=== PATIENT | female | born 1965 | race Caucasian/White ===

== ENCOUNTER → 2018-11-05 06:31 | Outpatient (CLI) | payer BC, SELFPAY ==
--- NOTE | 2018-11-05 06:35 | CT_ITS ---
STUDY: CT ABDOMEN AND PELVIS WITH AND WITHOUT CONTRAST REASON FOR EXAM: Female, 53 years old. RADIATION DOSAGE (If Supplied By Facility): CTDIvol = ( 12.09 ) mGy, DLP = ( 1000.19 ) mGycm TECHNIQUE: Transaxial images were obtained from the dome of the diaphragm to the symphysis pubis without oral contrast. 100CC IV Isovue 300 was administered. Sagittal and coronal images were reconstructed. Individualized dose optimization techniques were used for this CT. COMPARISON: None. FINDINGS: The visualized lung bases are unremarkable. The visualized portions of the heart are within normal limits. Normal liver. Normal gallbladder and extrahepatic biliary system. Normal spleen. Normal pancreas. No focal lesion or abnormal enhancement. Normal bilateral adrenal glands. The right kidney revealed evidence of 5 mm stone involving the within the UP junction on the left side causing slight fullness of the collecting system. No abnormality detected in the left kidney.. Normal visualized stomach. Normal small intestine. Normal colon. The appendix is not visualized. Normal abdominal aorta. Normal inferior vena cava. Normal retroperitoneum. Normal urinary bladder. Normal abdominal wall. Normal osseous structures. CT/CT Abd/Pelvis W/WO Contrast IMPRESSION: 5mm calculus at the UP junction on the right side causing mild fullness of the right collecting system Electronically Signed: Bubba Mancera, at 10:45 EDT Tel , Service support ,
== END ==
PROVIDERS: Family Provider Family Medicine; PCP Family Medicine; Referring Provider Urology; Visit Provider Urology
DX: R31.0 Gross hematuria (principal)
CPT/HCPCS: 74178; Q9967

== ENCOUNTER 2018-11-06 13:16 | Day surgery (SDC) | payer BC, SELFPAY ==
[2018-11-06 13:38] VITALS: BP 117/80; PULSE 80; RESP 14; TEMP 37.1; O2SAT 99; BMI 24.3
--- NOTE | 2018-11-06 15:52 | PCM.OPRPT ---
Problem List (1) Right renal stone Status: Acute Report of Operation Date of Procedure: 11/06/18 Pre-Operative Diagnosis: right renal stone Post-Operative Diagnosis: same Surgery/Procedure Performed:: right renal extracorporeal shockwave lithotripsy, cystoscopy and right ureteral stent insertion Description of Surgical Findings:: The patient is a 53-year-old female sent [facility] for evaluation of gross hematuria. She was identified as having a 5 mm right UPJ calculus. the risks benefits and alternatives were discussed with her and she agreed to proceed with surgical intervention. Informed consent was obtained. She was taken to the operating room and placed in supine position on operating room table. Anesthesia monitored the head, neck, airway, IV access and vital signs throughout the case. Once anesthesia was appropriately administered the patient was aligned with the lithotripter. The stone was identified and 1500 shocks were applied. At this time a cystourethroscopy was performed revealing bloody discharge from the right ureteral orifice secondary to stone treatment. The remainder of the bladder mucosa and examination were within normal limits. Specifically there were no masses, ulcerations or foreign bodies identified. A 6 Spanish 24 cm stent was inserted with the string left attached. Good curling was achieved in the renal pelvis as well as the urinary bladder. A fragments of the stone was then identified and 500 more shocks were applied. The patient tolerated the procedure well. The stone was no longer visible. The patient was awakened and taken to the recovery room in good condition. There were no complications during this procedure. Type of Anesthesia:: General Special Medications: ancef Specimen's removed: none Description of Procedure: See above. Grafts/Implants Used: JJ stent - Complications none - Admit VTE Documentation VTE Present on Admission: Yes VTE Mechan Device Prophylaxis: SCD's VTE Pharm Prophylaxis ordered?: No Reason prophylaxis not ordered:: Treatment Not Indicated
--- NOTE | 2018-11-06 15:53 | DCINST_ITS ---
Discharge Diet: No Restrictions Discharge Activity: May not drive while taking narcotic pain medications., May Shower May resume sexual activity in: 1 week Call your doctor if you observe: Fever of 101 or Higher, Inability to urinate, Inability to have a bowel movement, Shortness of breath, Chest pain, Calf discomfort, Uncontrolled pain Allergies/Adverse Reactions: Allergies No Known Allergies Allergy (Verified 11/05/18 16:22) Medications to take at Discharge Albuterol Inhaler [Ventolin Hfa] 1 - 2 puff INHALATION Q4H PRN PRN 11/05/18 Levothyroxine Sodium [Levoxyl] 50 mcg PO DAILY 11/05/18 Cephalexin [Keflex] 500 mg PO Q12 3 Days #6 cap 11/06/18 Fluconazole [Diflucan] 150 mg PO DAILY 2 Days #2 tab 11/06/18 Oxycodone HCl/Acetaminophen [Percocet 5/325] 1 - 2 tab PO Q6H PRN PRN 7 Days #30 tab 11/06/18 Phenazopyridine HCl [Pyridium] 200 mg PO TID PRN PRN 7 Days #30 tab 11/06/18 The following prescriptions were given: Fluconazole [Diflucan] 150 mg PO DAILY 2 Days #2 tab Prescription Printed Cephalexin [Keflex] 500 mg PO Q12 3 Days #6 cap Prescription Printed Oxycodone HCl/Acetaminophen [Percocet 5/325] 1 - 2 tab PO Q6H PRN PRN 7 Days #30 tab PRN Reason: Pain Prescription Printed Phenazopyridine HCl [Pyridium] 200 mg PO TID PRN PRN 7 Days #30 tab PRN Reason: Bladder Spasms Prescription Printed Primary Care Physician: Jesus Torres MD [Primary Care Provider] - Test Results: Test results from this visit will be discussed in further detail at your follow- up appointment, if applicable. Please Follow Up With: yCndy Ying MD When: call office for appt in 2 weeks Proposed Discharge Date: 11/06/18
[2018-11-06] MEDS: Cefazolin 2 GM in 0.9% Normal Saline 100 ML IV (16:28)
[2018-11-06 17:40] VITALS: BP 111/72; BP 117/80; PULSE 68; RESP 15; TEMP 36.3; O2SAT 100
[2018-11-06 17:45] VITALS: BP 114/72; BP 117/80; PULSE 68; RESP 16; O2SAT 100
[2018-11-06 17:50] VITALS: BP 116/69; BP 117/80; PULSE 68; RESP 16; O2SAT 100
[2018-11-06 17:55] VITALS: BP 113/68; BP 117/80; PULSE 76; RESP 16; TEMP 36.4; O2SAT 100
[2018-11-06 19:03] VITALS: BP 117/80; BP 149/75; PULSE 81; RESP 16; TEMP 37.2; O2SAT 100
== END 2018-11-06 19:16 | disposition home or self-care (01) ==
LOC: SDC 13:19 → AC 13:19
PROVIDERS: Family Provider Family Medicine; PCP Family Medicine; Referring Provider Urology; Visit Provider Urology
PROC: (CPT 50590; principal; 2018-11-06 14:50)
DX: N13.2 Hydronephrosis with renal and ureteral calculous obstruction (principal); R35.0 Frequency of micturition; R39.15 Urgency of urination; E06.9 Thyroiditis, unspecified; Z79.899 Other long term (current) drug therapy
CPT/HCPCS: 50590; 52332; J7120; C1769; C2617; J2405

== ENCOUNTER → 2018-11-23 | Outpatient (CLI) | payer BC, SELFPAY ==
[2018-11-06 13:38] VITALS: BMI 24.3
--- NOTE | 2018-11-23 11:39 | RAD_ITS ---
STUDY: X-RAY - ABDOMEN/PELVIS REASON FOR EXAM: Female, 53 years old. Kidney stone TECHNIQUE: Frontal view of the abdomen was performed COMPARISON: 05 November 2018 FINDINGS: Normal visualized lung bases. There is an unremarkable bowel gas pattern. There is no demonstrated free abdominal air. The visualized liver, spleen and kidneys are grossly normal in size and morphology. Normal soft tissue structures. Normal visualized osseous structures. RAD/Abdomen Single View IMPRESSION: Normal x-ray examination of the abdomen and pelvis. Please note that patient had a small, less than 5 mm, renal calculus in the right proximal ureter. Stones of that size are not likely to be detected on plain films. Electronically Signed: Victor Manuel Mccauley, at 18:40 EDT Tel , Service support ,
== END | disposition home or self-care (01) ==
LOC: MTRAD 11:37
PROVIDERS: Family Provider Family Medicine; PCP Family Medicine; Referring Provider Urology; Visit Provider Urology
DX: N20.0 Calculus of kidney (principal)
CPT/HCPCS: 74018